=== PATIENT | female | born 1970 | race Hispanic/Latino ===

== ENCOUNTER 2019-04-01 03:49 | Inpatient (IN) | payer SELFPAY ==
[~2019-04-01] VITALS: Ht 149.9 cm; Wt 79.8 kg
[2019-04-01] MEDS: MORPHINE SULFATE INJ 4 MG/ML INJ 1ML IV PRN ×3 (03:50→15:05)
[2019-04-01] MEDS ORDERED: ONDANSETRON HCL INJ 2MG/ML 2ML 2 MG/ML VIAL IV STA (03:59)
[2019-04-01] MEDS ORDERED: MORPHINE SULFATE 2 MG/ML SYR 1ML IV STA (03:59)
[2019-04-01] MEDS ORDERED: MORPHINE SULFATE 2 MG/ML SYR 1ML ONE (04:00)
[2019-04-01] MEDS ORDERED: ONDANSETRON HCL INJ 2MG/ML 2ML 2 MG/ML VIAL ONE (04:01)
[2019-04-01 04:10] LABS: BASOPHILS # (AUTO) 0.1 (0.0-0.1); BASOPHILS % 0.8 % (0.0-1.0); EOSINOPHILS # (AUTO) 0.2 (0.0-0.4); EOSINOPHILS % 2.1 % (0.0-6.0); HEMATOCRIT 40.1 % (34.2-44.1); HEMOGLOBIN 14.1 g/dL (12.0-16.0); LYMPHOCYTES # (AUTO) 3.9 (1.0-3.2); LYMPHOCYTES % 38.4 % (18.0-39.1); MEAN CORPUSCULAR HEMOGLOBIN 30.8 pg (28-32); MEAN CORPUSCULAR HGB CONC 35.2 g/dL (31-35); MEAN CORPUSCULAR VOLUME 87.6 fL (81-99); MONOCYTES # (AUTO) 0.8 (0.2-0.8); MONOCYTES % 8.2 % (4.4-11.3); NEUTROPHILS # (AUTO) 5.1 (2.1-6.9); PLATELET COUNT 264 x10e3/uL (140-360); RED BLOOD COUNT 4.58 x10e6/uL (3.6-5.1); RED CELL DISTRIBUTION WIDTH 11.8 % (11.7-14.4)
[2019-04-01 04:33] LABS: ALANINE AMINOTRANSFERASE 60 IU/L (0-55); ALBUMIN 4.2 g/dL (3.5-5.0); ALBUMIN/GLOBULIN RATIO 1.3 (0.8-2.0); ALKALINE PHOSPHATASE 73 IU/L (40-150); ANION GAP 17.8 mmol/L (8-16); BLOOD UREA NITROGEN 17 mg/dL (7-26); BUN/CREATININE RATIO 20 (6-25); CALCIUM 10.1 mg/dL (8.4-10.2); CARBON DIOXIDE 24 mmol/L (22-29); CHLORIDE 101 mmol/L (98-107); CREATINE KINASE 96 IU/L (29-168); CREATININE, SERUM 0.84 mg/dL (0.57-1.11); EST GLOMERULAR FILTRATION RATE > 60 ML/MIN (60-); GLUCOSE 252 mg/dL (74-118); POTASSIUM 3.8 mmol/L (3.5-5.1); SODIUM 139 mmol/L (136-145)
[2019-04-01 04:34] LABS: AMYLASE 55 U/L (25-125); LIPASE 58 U/L (8-78)
[2019-04-01] MEDS ORDERED: SODIUM CHLORIDE 0.9% 50ML 50 ML ONE (04:40)
[2019-04-01] MEDS ORDERED: IOPAMIDOL 370 MG/ML 200 ML INFUS..BTL INJ ONE (04:40)
--- NOTE | 2019-04-01 05:11 | Diagnostic Imaging Report ---
EXAM: CT Abdomen and Pelvis WITH contrast INDICATION: Left flank and left lower quadrant pain. Nausea and vomiting. COMPARISON: None. TECHNIQUE: Abdomen and pelvis were scanned utilizing a multidetector helical scanner from the lung base to the pubic symphysis after administration of IV contrast. Coronal and sagittal reformations were obtained. Routine protocol was performed. Scan was performed when during portal venous phase. IV CONTRAST: 100 cc Isovue 300 ORAL CONTRAST: Water RADIATION DOSE: Total DLP: 584.08 mGy*cm Estimated effective dose: (DLP x 0.015 x size factor) mSv COMPLICATIONS: None FINDINGS: LINES and TUBES: None. LOWER THORAX: Unremarkable HEPATOBILIARY: Hepatomegaly. The liver is diffuse hypodense compared to the spleen, consistent with diffuse hepatic diffuse hepatic steatosis. No focal hepatic lesions. No biliary ductal dilation. GALLBLADDER: No radio-opaque stones or sludge. No wall thickening. SPLEEN: No splenomegaly. PANCREAS: No focal masses or ductal dilatation. ADRENALS: No adrenal nodules. KIDNEYS/URETERS: Kidneys enhance symmetrically. Mild left hydroureteronephrosis. Tiny, 3 mm low-attenuation lesion in the lower interpolar region suggestive of a tiny cyst. 5 mm low-attenuation lesion in the lateral lower pole of the right kidney also likely to represent a small cyst. 5 mm calculus within the proximal left ureter on axial image 45 and coronal images 61. GI TRACT: No abnormal distention, wall thickening, or evidence of bowel obstruction. Appendix is normal. PELVIC ORGANS/BLADDER: Unremarkable. LYMPH NODES: No lymphadenopathy. VESSELS: Unremarkable. PERITONEUM / RETROPERITONEUM: No free air or fluid. BONES: Unremarkable. SOFT TISSUES: Mild prominence and increased density in the umbilical region nonspecific. IMPRESSION: 1. 5 mm obstructing calculus in the proximal left ureter resulting in mild left hydroureteronephrosis. 2. Hepatomegaly and hepatic steatosis. Signed by: Dr. Regulo Romero M.D. on 04/01/2019 5:08 AM
[2019-04-01 05:20] LABS: BILIRUBIN,URINE NEGATIVE (NEGATIVE); CLARITY,URINE SL CLOUDY (CLEAR); COLOR,URINE YELLOW (YELLOW); KETONES,URINE NEGATIVE (NEGATIVE); LEUKOCYTE ESTERASE ,URINE NEGATIVE (NEGATIVE); NITRITE,URINE NEGATIVE (NEGATIVE); PROTEIN,URINE DIPSTICK TRACE (NEGATIVE); URINE UROBILINOGEN 0.2 mg/dL (0.2 - 1)
[2019-04-01 05:23] LABS: AMPHETAMINES SCREEN,URINE NEGATIVE (NEGATIVE); PHENCYCLIDINE SCREEN,URINE NEGATIVE (NEGATIVE)
[2019-04-01 05:24] LABS: BENZODIAZEPINES SCREEN,URINE NEGATIVE (NEGATIVE)
[2019-04-01 05:25] LABS: BACTERIA,URINE MODERATE /HPF; EPITHELIAL CELLS,URINE MODERATE /LPF; RBC,URINE >50 /HPF (0-5)
[2019-04-01] MEDS ORDERED: MORPHINE SULFATE 2 MG/ML SYR 1ML IV PRN (06:30)
--- OUTSIDE RECORDS SUMMARY | 2019-04-01 06:43 | XMS REPORT | Encounter Summary ---
Author Organization Unknown Address [address] [place] [address] Phone [phone] Reason for Visit Medical Complaint Instructions 1. Influenza-like symptoms oseltamivir 75 mg capsule Bromfed DM 2 mg-30 mg-10 mg/5 mL syrup rapid flu (A+B) 2. History of hypertension high blood pressure: care instructions 3. History of diabetes mellitus type 2 diabetes: care instructions 4. Former light tobacco smoker Discussion Note Pt is aaox3 and in NAD; verbalizes understanding of all instructions and has no further questions at this time Plan of Care Patient Instructions Take fluticasone as needed twice a day until symptoms subside; increase fluids and get plenty of rest. Take a warm, steamy shower and blow your nose in the shower. After drying yourself off, place the tip of the nasal spray inside each nostril, and spray once into each nostril towards the orifice inside your nose. Then, immediately lift your head up for 10 seconds to drain the medication into your sinuses. Repeat again at night. Take medications as prescribed and discussed; follow up with your PCP within 2-3 days or sooner should symptoms worsen. Follow up with PCP regarding the need for weight loss, dietary management, diabetes and blood pressure management, and exercise. Reminders Provider Appointments None recorded. Lab Rapid Flu (A+B) 08/14/2017 [facility] Referral None recorded. Procedures None recorded. Surgeries None recorded. Imaging None recorded. Medications Name Start Date Bromfed DM 2 mg-30 mg-10 mg/5 mL syrup Take 10 mL every 4 hours by oral route as needed. Lexapro lisinopril 10 mg-hydrochlorothiazide 12.5 mg tablet Take 1 tablet every day by oral route. oseltamivir 75 mg capsule Take 1 capsule twice a day by oral route as directed for 5 days. Victoza 2-Teto 0.6 mg/0.1 mL (18 mg/3 mL) subcutaneous pen injector Inject by subcutaneous route. Medications Administered None recorded. Vitals Height Weight BMI Blood Pressure 4 ft 11 in 165 lbs 33.3 kg/m2 122/80 mm[Hg] Lab Results Date Name Specimen Result Interpretation Description Value Range Status Address Rapid Flu (A+B) Influenza a negative [facility]: [facility] Influenza B negative [facility]: [facility] Allergies Code Code System Name Reaction Severity Status Onset NKDA Problems Name Status Onset Date Source Allergic Rhinitis Active Encounter Asthma Active Encounter Procedures None recorded. Vaccine List Vaccine Type Tdap 06/20/2008 Social History Smoking Status Former Smoker Past Encounters 08/14/2017 Influenza-like Symptoms; History of Hypertension; History of Diabetes Mellitus; Former Light Tobacco Smoker Don Ventura, [facility]: [address] [place] [address], Ph. History of Present Illness [id number] Reported By: Patient HPI: Quality: cannot identify. Duration: constant, 1 days. Severity: subjective temperature, same. Onset/Timing: first recorded last night. Context: no tick/insect bites, no recent travel, no new medications, ill contacts. Associated Symptoms: no rash, no lethargy, fever/chills, headache, muscle aches, cold symptoms, tired (fatigue), cough, nasal passage blockage (stuffiness). Modifying Factors nothing gives relief Review of Systems:ROS as noted in the HPI Review of Systems Basic Reported By: Patient Physical Exam Adult Basic, Adult Female Complete Reported By: Patient Constitutional: General Appearance: healthy-appearing, well-nourished, well-developed. Level of Distress: acutely ill. Ambulation: ambulating normally Psychiatric: Mental Status: active and alert. Orientation: to time, to place, to person Hvr-Suzv-Njcra-Throat: Ears: no lesions on external ear, no outer ear tenderness, EACs clear, TMs clear. Hearing: no hearing loss. Nose: no lesions on external nose, nares patent, no septal deviation, nasal passages clear, no sinus tenderness, nasal discharge--rhinorrhea, post nasal drip. Lips, Teeth, and Gums: no mouth or lip ulcers, no bleeding gums, normal dentition. Oropharynx: moist mucous membranes, no erythema, no exudates, tonsils not enlarged Neck: Lymph Nodes: no cervical LAD, no supraclavicular LAD Lungs: Respiratory effort: no dyspnea, no tachypnea, no use of accessory muscles, no intercostal retractions. Auscultation: breath sounds normal Cardiovascular: Heart Auscultation: RRR, no murmurs Neurologic: Gait and Station: normal gait, normal station
--- OUTSIDE RECORDS SUMMARY | 2019-04-01 06:43 | XMS REPORT | Clinical Summary ---
Author Author [facility] Organization [facility] Address Unknown Phone Unavailable Care Team Providers Care Trapeze Performer Name Role Phone Henna Cardoso MD PCP Allergies No Known Allergies Medications End Date Status Medication Sig Dispensed Refills Start Date Active blood-glucose meter kit Test daily 1 each 0 before all 6 meals/snacks and once before bedtime. Active lancets misc Test daily 200 each 1 before all 6 meals/snacks and once before bedtime. Active blood sugar diagnostic Test daily 100 strip 3 strips strip test strips before all 6 meals/snacks and once before bedtime. Active estradiol (ESTRADIOL 0 TRANSDERMAL PATCH) 0.1 mg/24 hr Active progesterone (PROMETRIUM) 0 100 MG capsule Active dulaglutide (TRULICITY) Inject 1.5 mg 4 Syringe 2 1.5 mg/0.5 mL pen under the 8 injector skin every 7 days. 04/26/2018 lisinopril-hydrochlorothi Take 1 tablet 90 tablet 0 azide by mouth 8 (PRINZIDE,ZESTORETIC) daily for 90 10-12.5 mg per tablet days. 06/01/2018 escitalopram (LEXAPRO) 20 Take 1 tablet 90 tablet 0 MG tablet (20 mg total) 8 by mouth daily for 90 days. Active Problems Not on file Immunizations Name Dates Previously Given Next Due FLUZONE QUAD INTRADERMAL 05/16/2016 PF Influenza Trivalent 11/11/2017 MMR 01/15/2018, 11/17/2017 PPD Test 11/11/2017 Pneumococcal 05/16/2016 Polysaccharide Tdap 11/11/2017 Family History Medical History Relation Name Comments Alcohol abuse Father [place] 2014 Cancer Father [place] Colon cancer Father [place] Colon Cancer Hypertension Father [place] Diabetes Maternal Deb 2016 Grandmother Baljinder Depression Mother Patsy Valencia Diabetes Mother Patsy Valencia Stroke Mother Patsy Valencia 2 strokes since 05/2015 Relation Name Status Comments Father Main [place] Maternal Grandmother Deb Gale Mother Patsy Valencia Social History Date Tobacco Use Types Packs/Day Years Used Quit: 08/24/2000 Former Smoker Cigarettes 0.5 5 Smokeless Tobacco: Never Used Alcohol Use Drinks/Week oz/Week Comments Yes 2 Glasses of socially, once or twice per month wine 4 Cans of beer Sex Assigned at Date Recorded Not on file Industry Job Start Date Occupation Not on file Not on file Not on file Travel End Travel History Travel Start No recent travel history available. Last Filed Vital Signs Not on file Plan of Treatment Health Maintenance Due Date Last Done Comments INFLUENZA VACCINE 03/24/2019 11/11/2017, 11/11/2017, 05/16/2016 Results Not on fileafter 03/31/2018 Insurance Type Payer Benefit Subscriber ID Effective Phone Address Plan / Dates Group PPO BCBS BCBS xxxxxxxxxxxx 2017-P CHOICE resent PPO/[employer] PPO Advance Directives Patient has advance care planning documents on file. For more information, matt e contact: Jorge Muller [address] [place] [address]
--- OUTSIDE RECORDS SUMMARY | 2019-04-01 06:43 | XMS REPORT ---
Author [facility] Address Unknown Phone Unavailable Care Team Providers Care Clinical Manager Home Care Name Role Phone Ruben MCPHERSON Unavailable Unavailable Problems This patient has no known problems. Allergies, Adverse Reactions, Alerts This patient has no known allergies or adverse reactions. Medications This patient has no known medications. Results Test Description Test Time Test Comments Text Results Atomic Results Result Comments CT ABDOMEN/PELVIS W 2019-04-01 05:01:00 [place] [address] Patient Name: CATHY STANFORD MR #: [id number] : 1970 Age/Sex: 48/F Req #: [id number] Adm Physician: Ordered by: NINA MCPHERSON MD Report #: [id number] Location: ER Room/Bed: Procedure: [id number] CT/CT ABDOMEN/PELVIS W Exam Date: 04/01/19 Exam Time: 0445 REPORT STATUS: Signed EXAM: CT Abdomen and Pelvis WITH contrast INDICA TION: Left flank and left lower quadrant pain. Nausea and vomiting. COMPARISON: None. TECHNIQUE: Abdomen and pelvis were scanned utilizing a multidetector helical scanner from the lung base to the pubic symphysis after administration of IV contrast. Coronal and sagittal reformations were obtained. Routine protocol was performed. Scan was performed when during portal venous phase. IV CONTRAST: 100 cc Isovue 300 ORAL CONTRAST: Water RADIATION DOSE: Total DLP: 584.08 mGy*cm Estimated effective dose: (DLP x 0.015 x size factor) mSv COMPLICATIONS: None FINDINGS: LINES and TUBES: None. LOWER THORAX: Unremarkable HEPATOBILIARY: Hepatomegaly. The liver is diffuse hypodense compared to the spleen, consistent with diffuse hepatic diffuse hepatic steatosis. No focal hepatic lesions. No biliary ductal dilation. GALLBLADDER: No radio-opaque stones or sludge. No wall thickening. SPLEEN: No splenomegaly. PANCREAS: No focal masses or ductal dilatation. ADRENALS: No adrenal nodules. KIDNEYS/URETERS: Kidneys enhance symmetrically. Mild left hydroureteronephrosis. Tiny, 3 mm low-attenuation lesion in the lower interpolar region suggestive of a tiny cyst. 5 mm low- attenuation lesion in the lateral lower pole of the right kidney also likely to represent a small cyst. 5 mm calculus within the proximal left ureter on axial image 45 and coronal images 61. GI TRACT: No abnormal distention, wall thickening, or evidence of bowel obstruction. Appendix is normal. PELVIC ORGANS/BLADDER: Unremarkable. LYMPH NODES: No lymphadenopathy. VESSELS: Unremarkable. PERITONEUM / RETROPERITONEUM: No free air or fluid. BONES: Unremarkable. SOFT TISSUES: Mild prominence and increased density in the umbilical region nonspecific. IMPRESSION: 1. 5 mm obstructing calculus in the proximal left ureter resulting in mild left hydroureteronephrosis. 2. Hepatomegaly and hepatic steatosis. Signed by: Dr. Regulo Dominguez M.D. on 04/01/2019 5:08 AM Dictated By: JOANN DOMINGUEZ MD, MD Transcribed By: QUYEN on 04/01/19507 COPY TO: NINA MCPHERSON MD
--- OUTSIDE RECORDS SUMMARY | 2019-04-01 06:43 | XMS REPORT | Summary of Care ---
Author Author [facility] Organization [facility] Address Unknown Phone Unavailable Care Team Providers Care Freelance Director Name Role Phone Samantha Ewing DO PCP Encounter Details Care Team Description Date Type Department Samantha Ewing, [address] [place] [address] [address] [place] [address] 03/30/2019 Letter (Out) [facility]- [address], [address] [place] [address] Allergies No Known Allergiesdocumented as of this encounter (statuses as of 03/30/2019) Medications End Date Status Medication Sig Dispensed Refills Start Date Active Cholecalciferol, Vitamin Take 5,000 0 D3, (VITAMIN D3) 5,000 Units by 8 unit tablet mouth daily. Active liraglutide (SAXENDA) 3 inject 3 mg 5 Syringe 5 mg/0.5 mL (18 mg/3 mL) under the 8 PnIj skin daily. Active omega 2-jgz-fdl-fish oil 0 (FISH OIL) 1,600-500-800 mg/5 mL Liqd Active meloxicam (MOBIC) 7.5 mg Take 1-2 60 tablet 1 tabletIndications: tablets by 8 Polyarthralgia mouth daily. Active Blood-Glucose Meter Check sugar 1 Kit 0 (ONETOUCH VERIO IQ METER) once a day. 8 Kit Active lancets 31 gauge Misc Check sugar 100 Each 2 once a day. 8 Active blood sugar diagnostic Use as 100 Strip 2 (ONETOUCH VERIO) strip directed 8 Active MICRO THIN LANCETS 33 0 gauge Misc 8 Active ipratropium 17 Inhale 2 12.9 g 0 mcg/actuation Puffs 4 8 inhalerIndications: (four) times Cough, Bronchospasm daily as needed for Wheezing or Bronchospasm. Active albuterol 90 Inhale 2 8.5 g 2 mcg/actuation inhaler Puffs every 4 9 (four) hours as needed for Wheezing or Shortness of Breath. Active metformin ER 500 mg 24 hr 1 by mouth 120 tablet 2 tabletIndications: Type 2 daily for 1 9 diabetes mellitus without week then complication, without increase long-term current use of weekly by one insulin tab to max of 4 tabs daily after week #3. Active escitalopram oxalate 20 Take 1 tablet 90 tablet 2 mg tabletIndications: by mouth 9 Episode of recurrent daily. major depressive disorder, unspecified depression episode severity Active lisinopril-hydrochlorothi Take 1 tablet 90 tablet 2 azide 10-12.5 mg per by mouth 9 tabletIndications: daily. Essential hypertension 04/09/2019 Active doxycycline 100 mg Take 1 tablet 20 tablet 0 tabletIndications: Cough by mouth 2 9 (two) times daily for 10 days. documented as of this encounter (statuses as of 03/30/2019) Active Problems Problem Noted Date Flatulence, eructation, and gas pain 05/14/2018 Overview: Added automatically from request for surgery [id number] Colon cancer screening 05/14/2018 Overview: Added automatically from request for surgery [id number] Family history of colon cancer 05/14/2018 Overview: Added automatically from request for surgery [id number] Dyspepsia 05/13/2018 Overview: Added automatically from request for surgery [id number] Early satiety 05/13/2018 Overview: Added automatically from request for surgery [id number] Premature menopause on HRT 04/30/2018 Polyarthralgia 04/23/2018 Immunization counseling 04/23/2018 Positive ARELY (antinuclear antibody) 1:40 04/23/2018 ALT (SGPT) level raised 04/23/2018 Swelling of both hands 04/23/2018 Sicca, unspecified type 04/23/2018 Transaminitis 04/23/2018 Menopause 04/01/2018 Type 2 diabetes mellitus without complication, without long-term current 04/01/2018 use of insulin Episode of recurrent major depressive disorder, unspecified depression 04/01/2018 episode severity Essential hypertension 04/01/2018 Hypertriglyceridemia 04/01/2018 Obesity (BMI 30.0-34.9) 04/01/2018 documented as of this encounter (statuses as of 03/30/2019) Immunizations Name Administration Dates Next Due Influenza Virus Vaccine 05/24/2018, 10/22/2017 Influenza Virus Vaccine 05/16/2016 Quad ID [id number] YRS MMR 01/15/2018, 11/17/2017 PPD (TB) 11/11/2017 Pneumococcal 05/16/2016 Polysaccharide, PPSV23 (PNEUMOVAX) Tdap 11/11/2017 documented as of this encounter Social History Date Tobacco Use Types Packs/Day Years Used Never Smoker Smokeless Tobacco: Never Used Drinks/Week oz/Week Comments Alcohol Use social Yes Sex Assigned at Date Recorded Not on file Industry Job Start Date Occupation Not on file Not on file Not on file Travel End Travel History Travel Start No recent travel history available. documented as of this encounter Last Filed Vital Signs Not on filedocumented in this encounter Plan of Treatment Health Maintenance Due Date Last Done Comments HgA1C 1973 URINE MICROALBUMIN 1982 PAP SMEAR 1993 FOOT EXAM 04/01/2019 04/01/2018, 04/01/2018 LDL-C 04/01/2019 04/01/2018 CREATININE (SERUM) 04/23/2019 04/23/2018 INFLUENZA VACCINE 04/24/2019 05/24/2018, 11/11/2017, 10/22/2017, Additional history exists EYE EXAM 05/04/2019 05/04/2018 MAMMOGRAM 05/07/2019 05/07/2018 COLONOSCOPY 06/10/2023 06/10/2018 DTaP,Tdap,and Td Vaccines 11/12/2027 11/11/2017 (2 - Td) PNEUMOCOCCAL 0-64 YEARS Completed 05/16/2016 COMBINED SERIES documented as of this encounter Results Not on filedocumented in this encounter
--- OUTSIDE RECORDS SUMMARY | 2019-04-01 06:43 | XMS REPORT | Continuity of Care Document ---
Author Author [facility] Address Unknown Phone Unavailable Care Team Providers Care Mathematics Technician Name Role Phone mygall Information [employer] Unavailable Unavailable Problems Problem Status Onset Date Classification Date Reported Comments Source Influenza-like symptoms 08/14/2017 Diagnosis 08/15/2017 [facility] History of hypertension 08/14/2017 Diagnosis 08/15/2017 [facility] History of diabetes mellitus 08/14/2017 Diagnosis 08/15/2017 [facility] Former light tobacco smoker 08/14/2017 Diagnosis 08/15/2017 [facility] Allergic Rhinitis Problem 08/15/2017 [facility] Asthma Problem 08/15/2017 [facility] Medications Medication Details Route Status Patient Instructions Ordering Provider Order Date Source Brompheniramine Maleate 0.4 MG/ML / Dextromethorphan Hydrobromide 2 MG/ML / Pseudoephedrine Hydrochloride 6 MG/ML Oral Solution [Bromfed DM] Bromfed DM 2 mg-30 mg-10 mg/5 mL syrup Take 10 mL every 4 hours by oral route as needed. Active [facility] Lexapro Lexapro Active [facility] Hydrochlorothiazide 12.5 MG / Lisinopril 10 MG Oral Tablet lisinopril 10 mg-hydrochlorothiazide 12.5 mg tablet Take 1 tablet every day by oral route. Active [facility] Oseltamivir 75 MG Oral Capsule oseltamivir 75 mg capsule Take 1 capsule twice a day by oral route as directed for 5 days. Active [facility] 3 ML liraglutide 6 MG/ML Pen Injector [Victoza] Victoza 2-Teto 0.6 mg/0.1 mL (18 mg/3 mL) subcutaneous pen injector Inject by subcutaneous route. Active [facility] Allergies, Adverse Reactions, Alerts No Known Medication Allergies Immunizations Immunization Date Given Site Status Last Updated Comments Source Tdap 06/20/2008 completed [facility] Results Order Name Results Value Reference Range Date Interpretation Comments Source Influenza A negative 08/14/2017 [facility] Influenza B negative 08/14/2017 [facility] Pathology Reports No Data Provided for This Section Diagnostic Reports No Data Provided for This Section Consultation Notes No Data Provided for This Section Discharge Summaries No Data Provided for This Section History and Physicals No Data Provided for This Section Vital Signs Vital Sign Value Date Comments Source Diastolic (mm Hg) 80 08/14/2017 [facility] Height 59 08/14/2017 [facility] Systolic (mm Hg) 122 08/14/2017 [facility] Weight 165 08/14/2017 [facility] Encounters Location Location Details Encounter Type Encounter Number Reason For Visit Attending Provider ADM Date DC Date Status Source [place] - [facility] - [id number] Don Ventura, MA[employer] [employer] [address] [facility] [place] [address], Ph. [id number] Don Ventura 08/14/2017 [facility] Procedures No Data Provided for This Section Assessment and Plan No Data Provided for This Section Plan of Care No Data Provided for This Section Social History Social History Date Source Smoking Status Former Smoker 12/26/2012 [facility] Family History No Data Provided for This Section Advance Directives No Data Provided for This Section Functional Status No Data Provided for This Section
--- OUTSIDE RECORDS SUMMARY | 2019-04-01 06:44 | XMS REPORT | Summary of Care ---
Author Author [facility] - Health Organization [facility] - Health Address Unknown Phone Unavailable Care Team Providers Care Library Science Instructor Name Role Phone Samantha Ewing DO PCP Reason for Visit * Reason Comments Medication Assistance Cough Encounter Details Care Team Description Date Type Department Samantha Ewing DO [address] [place] [address] [address] [place] [address] Type 2 diabetes mellitus without complication, without long-term current use of insulin (Primary Dx); Essential hypertension; Cough; Whole body pain; Episode of recurrent major depressive disorder, unspecified depression episode severity 03/30/[address] [facility]- [address] [place] [address] Allergies No Known Allergiesdocumented as [...] the 8 PnIj skin daily. Active omega 7-ydh-bas-fish oil 0 (FISH OIL) 1,600-500-800 mg/5 mL [...] 9 (two) times daily for 10 days. 03/30/2019 Discontinued predniSONE 10 mg 2 tabs (20 15 tablet 0 tabletIndications: Cough, mg) daily x 5 8 Bronchospasm days then 1 tabs (10 mg) daily x 5 days 03/30/2019 Discontinued lisinopril-hydrochlorothi Take 1 tablet 90 tablet 2 azide 10-12.5 mg per by mouth 9 tabletIndications: daily. Essential hypertension 03/30/2019 Discontinued escitalopram oxalate 20 Take 1 tablet 90 tablet 2 mg tabletIndications: by mouth 9 Episode of recurrent daily. major depressive disorder, unspecified depression episode severity documented as of this encounter (statuses as of 03/30/2019) Active Problems Problem Noted Date Flatulence, eructation, and gas pain 05/14/2018 Overview: Added automatically from request for surgery [id number] Colon cancer screening 05/14/2018 Overview: Added automatically from request for surgery [id number] Family history of colon cancer 05/14/2018 Overview: Added automatically from request for surgery [id number] Dyspepsia 05/13/2018 Overview: Added automatically from request for surgery [id number] Early satiety 05/13/2018 Overview: Added automatically from request for surgery [id number] Premature menopause on HRT 04/30/2018 Polyarthralgia 04/23/2018 [...] of this encounter Last Filed Vital Signs Reading Time Taken Comments Vital Sign 116/69 03/30/2019 8:35 AM CDT Blood Pressure 104 03/30/2019 8:35 AM CDT Pulse 37.3 C (99.2 F) 03/30/2019 8:35 AM CDT Temperature 18 03/30/2019 8:35 AM CDT Respiratory Rate 96% 03/30/2019 8:35 AM CDT Oxygen Saturation - - Inhaled Oxygen Concentration 76.9 kg (169 lb 9.6 oz) 03/30/2019 8:35 AM CDT Weight 149.9 cm (4' 11") 03/30/2019 8:35 AM CDT Height 34.26 03/30/2019 8:35 AM CDT Body Mass Index documented in this encounter Patient Instructions * Patient Instructions* Samantha Ewing, - 03/30/2019 8:30 AM CDT Whole 30 Consider decreasing Gluten Elimination Diet Lizette Ho MD [facility] [address] [place] [address] documented in this encounter Progress Notes * Mena Gómez - 03/30/2019 8:30 AM CDT Recent Labs 03/30/19 0938 [id number] 9.1* * Samantha Ewing, - 03/30/2019 8:30 AM CDT Subjective: Betty Billy is a 48 year old female with a chief complaint of medication r efills. Patient states life is well. No surgeries or hospitalizations since [facility]. Pt states she visited with Dr. Paz Rheumatology and feels chronic whole b ferdinand pain is likely Fibromyalgia. Patient states she has hx of being told she may have lupus. Patient states Dr. Paz prescribed the patient Lyrica but she did not give the medication enough time for the medication to work. Patient states whole body pain began 2 years ago and started as hip pain after g etting up. Patient states she has joint pain daily that caused her to take a par t time job due to being in pain all day at work. Patient states she does not sle ep and is fatigued daily. Patient states she was Vegan for 30 days and felt better but the pain did not go away. Patient states diet and exercise allowed her to feel better and sleep bet ter. 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 Patient states she is not taking Saxenda due to not having insurance. Patient st ates she has hx of taking Metformin but discontinued due to GI side effects. Pat bijan states she is open to trying Metformin again. A!C : 6.4 completed on 03/18/18 at [facility]. Patient states she is compliant with Lexapro 20 mg and Lisinopril-HCTZ 10-12.5 m g. Patient states her depression has exacerbated. No rashes. No recent traveling. Patient states she has not been tested for Lyme disease. Patient does not recall being bitten. Patient complains of cough and SOB present for 3 days. No fever. Patient states her grandson was recently sick and just started daycare. Hx of asthma as a kid. Last Tdap 11/11/17. Review of Systems Constitutional: Positive for activity change. Negative for appetite change, fati vero, weight gain and weight loss. HENT: Negative for congestion and rhinorrhea. Eyes: Negative. Respiratory: Negative for cough and shortness of breath. Cardiovascular: Negative for chest pain and palpitations. Gastrointestinal: Negative for abdominal pain, constipation and diarrhea. Genitourinary: Negative for dysuria. Musculoskeletal: Positive for arthralgias. Negative for back pain and myalgias. Skin: Negative for rash. Neurological: Negative for dizziness and weakness. Psychiatric/Behavioral: Negative for dysphoric mood. The patient is not nervous/ anxious. Endocrine: Negative for weight gain and weight loss. Patient Active Problem List Diagnosis Menopause Type 2 diabetes mellitus without complication, without long-term current use of insulin Episode of recurrent major depressive disorder, unspecified depression episo de severity Essential hypertension Hypertriglyceridemia Obesity (BMI 30.0-34.9) Polyarthralgia Immunization counseling Positive ARELY (antinuclear antibody) 1:40 ALT (SGPT) level raised Swelling of both hands Sicca, unspecified type Transaminitis Premature menopause on HRT Dyspepsia Early satiety Flatulence, eructation, and gas pain Colon cancer screening Family history of colon cancer Current Outpatient Medications on File Prior to Visit Medication Sig Dispense Refill albuterol 90 mcg/actuation inhaler Inhale 2 Puffs every 4 (four) hours as ne eded for Wheezing or Shortness of Breath. 8.5 g 2 ipratropium 17 mcg/actuation inhaler Inhale 2 Puffs 4 (four) times daily as needed for Wheezing or Bronchospasm. 12.9 g 0 MICRO THIN LANCETS 33 gauge Misc blood sugar diagnostic (ONETOUCH VERIO) strip Use as directed 100 Strip 2 Blood-Glucose Meter (ONETOUCH VERIO IQ METER) Kit Check sugar once a day. 1 Kit 0 lancets 31 gauge Misc Check sugar once a day. 100 Each 2 meloxicam (MOBIC) 7.5 mg tablet Take 1-2 tablets by mouth daily. 60 tablet 1 omega 1-nzy-kra-fish oil (FISH OIL) 1,600-500-800 mg/5 mL Liqd Cholecalciferol, Vitamin D3, (VITAMIN D3) 5,000 unit tablet Take 5,000 Units by mouth daily. liraglutide (SAXENDA) 3 mg/0.5 mL (18 mg/3 mL) PnIj inject 3 mg under the sk in daily. 5 Syringe 5 No current facility-administered medications on file prior to visit. No Known Allergies Family History Problem Relation Age of Onset Diabetes Mother Hypothyroidism Mother Stroke Mother Colon Cancer Father Colon Cancer Sister Social History Socioeconomic History Marital status: Spouse name: Not on file Number of children: Not on file Years of education: Not on file Highest education level: Not on file Occupational History Not on file Social Needs Financial resource strain: Not on file Food insecurity: Worry: Not on file Inability: Not on file Transportation needs: Medical: Not on file Non-medical: Not on file Tobacco Use Smoking status: Never Smoker Smokeless tobacco: Never Used Substance and Sexual Activity Alcohol use: Yes Comment: social Drug use: No Sexual activity: Yes Partners: Male control/protection: Post-menopausal Lifestyle Physical activity: Days per week: Not on file Minutes per session: Not on file Stress: Not on file Relationships Social connections: Talks on phone: Not on file Gets together: Not on file Attends jain service: Not on file Active member of club or organization: Not on file Attends meetings of clubs or organizations: Not on file Relationship status: Not on file Intimate partner violence: Fear of current or ex partner: Not on file Emotionally abused: Not on file Physically abused: Not on file Forced sexual activity: Not on file Other Topics Concern Not on file Social History Narrative , 3 children 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 She appears well-dev eloped and well-nourished. HENT: Head: Normocephalic. Right Ear: External ear normal. Left Ear: External ear normal. Nose: Nose normal. Mouth/Throat: Oropharynx is clear and moist. Eyes: Pupils are equal, round, and reactive to light. Conjunctivae and EOM are n ormal. Cardiovascular: Normal rate, regular rhythm, normal heart sounds and intact dist al pulses. No murmur heard. Pulmonary/Chest: Effort normal. She has rhonchi in the right upper field, the ri ght middle field and the right lower field. Abdominal: Soft. Bowel sounds are normal. Musculoskeletal: Normal range of motion. Lymphadenopathy: She has no cervical adenopathy. Neurological: She is alert and oriented to person, place, and time. She has norm al reflexes. Skin: Skin is warm and dry. Psychiatric: She has a normal mood and affect. Her behavior is normal. Judgment and thought content normal. Vitals reviewed. Sensory exam of the foot is normal. Monofilament exam with sensation Right: 5/5, Left: 5/5. Lesions absent Ulcers Absent Peripheral pulses present 2+. Adult health maintenance and preventive care measures reviewed. All new meds reviewed with disclosure re: use, dosing, common side effects. Pt expressed understanding. Assessment and Plan: Type 2 diabetes mellitus without complication, without long-term current use of insulin (primary encounter diagnosis) Comment: POCT HBA1C (%) Date Value 03/30/2019 9.1 (A) Plan: CONSULT/REFERRAL SOCIAL WORK-AMBULATORY, POCT HEMOGLOBIN A1C TEST, START metformin ER 500 mg 24 hr tablet Global teaching related to individual health problem(s) to include (but no t limited to) counseling on diet, food choices, exercise, hydration, monitoring parameters for blood pressure and blood sugar, keeping a log, med compliance, we ight loss, stress management and the importance of sleep and foot care. Essential hypertension Comment: Controlled. Plan: CONSULT/REFERRAL SOCIAL WORK-AMBULATORY, CONTINUE lisinopril-hydrochlorothiazide 10-12.5 mg per tablet Short and jail risks of uncontrolled HTN reviewed including morbidity and mortality. Cough Plan: START doxycycline 100 mg tablet Hydration and symptomatic care. Pt declines chest xray at this time. Whole body pain Plan: Contact social science professor due to patient no longer having insurance. Recommend ID assessment as well as 2nd opinion from [facility]. Discussed at length. Episode of recurrent major depressive disorder, unspecified depression episode s everity Comment: Supportive counseling and advice given. Plan: CONTINUE escitalopram oxalate 20 mg tablet AVS reviewed and given to patient at conclusion of visit. Samantha Ewing DO Scribe's Attestation Neha Lamar am scribing for, and in the presence of, Samantha Ewing DO who performed the services described here-in. Neha Epstein, March 30, 2019, 8:57 AM Physician's Attestation I, Samantha Ewing DO, personally performed the services described in this d ocumentation , as scribed by, Neha Epstein in my presence and it is both ac curate and complete. Samantha Ewing DO March 30, 2019, 5:54 PM * Mena Gómez - 03/30/2019 8:30 AM CDT Betty Billy is a 48 year old female to be seen in clinic today for a medic ation refills and cough Level of pain: 0/10 Location of pain: n/a Pt accompanied to visit by: self Fall risk assessed, allergies reviewed, pharmacy confirmed, medication reconcile d and to be reviewed by provider. Mena Gómez 03/30/2019 8:35 AM documented in this encounter Plan of Treatment Health [...] COMBINED SERIES documented as of this encounter Procedures Comments Procedure Name Priority Date/Time Associated Diagnosis POCT HEMOGLOBIN A1C TEST Routine 03/30/2019 Type 2 diabetes mellitus 9:38 AM CDT without complication, without long-term current use of insulin documented in this encounter Results * POCT HEMOGLOBIN A1C TEST (03/30/2019 9:38 AM CDT) POCT HBA1C 9.1 (A) 4 - 6 % Specimen Blood - CAPILLARY documented in this encounter Visit Diagnoses Diagnosis Type 2 diabetes mellitus without complication, without long-term current use of insulin - Primary Essential hypertension Unspecified essential hypertension Cough Whole body pain Generalized pain Episode of recurrent major depressive disorder, unspecified depression episode severity documented in this encounter
--- OUTSIDE RECORDS SUMMARY | 2019-04-01 06:44 | XMS REPORT | Summary of Care ---
Author Author [facility] - Health Organization [facility] - Health Address Unknown Phone Unavailable Care Team Providers Care Marble Helper Name Role Phone Samantha Ewing DO PCP Reason for Visit * Reason Comments Medication Assistance Cough Encounter Details Care Team Description Date Type Department Samantha Ewing DO [address] [place] [address] [address] [place] [address] Type 2 diabetes mellitus without complication, without long-term current use of insulin (Primary Dx); Essential hypertension; Cough; Whole body pain; Episode of recurrent major depressive disorder, unspecified depression episode severity 03/30/[address] [facility]- [address], [address] [place] [address] Allergies No Known Allergiesdocumented as [...] the 8 PnIj skin daily. Active omega 7-mgv-mpg-fish oil 0 (FISH OIL) 1,600-500-800 mg/5 mL [...] Overview: Added automatically from request for surgery [id number] Colon cancer screening 05/14/2018 Overview: Added automatically from request for surgery [id number] Family history of colon cancer 05/14/2018 Overview: Added automatically from request for surgery [id number] Dyspepsia 05/13/2018 Overview: Added automatically from request for surgery [id number] Early satiety 05/13/2018 Overview: Added automatically from request for surgery [id number] Premature menopause on HRT 04/30/2018 Polyarthralgia 04/23/2018 [...] decreasing Gluten Elimination Diet Lizette Ho MD [facility] [address] [place] [address] documented in this encounter Progress Notes * Mena Gómez - 03/30/2019 8:30 AM CDT Recent Labs 03/30/19 0938 [id number] 9.1* * Samantha Ewing, - 03/30/2019 8:30 [...] ter. 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 Patient states she is not taking Saxenda due to not having insurance. Patient st ates she has hx of taking Metformin but discontinued due to GI side effects. Pat bijan states she is open to trying Metformin again. A!C : 6.4 completed on 03/18/18 at [facility]. Patient states she is compliant with Lexapro [...] by mouth daily. 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 Cough Plan: START doxycycline 100 mg tablet Hydration and symptomatic care. Pt declines chest xray at this time. Whole body pain Plan: Contact social work assistant due to patient no longer having insurance. [...]
--- NOTE | 2019-04-01 07:00 | NUR ---
RECEIVED REPORT FROM OFF GOING NURSE. PATIENT IN ROOM IN BED. AWAKE AND ALERT. NO S/S OF ACUTE DISTRESS. RESP EVEN AND NON LABORED. REPORTS PAIN IS BETTER THEN WHEN ARRIVED, 10/31. PENDING ROOM ASSIGNMENT FOR ADMISSION. BED DOWN CALL LIGHT IN REACH. WILL CONTINUE TO MONITOR.
[2019-04-01] MEDS ORDERED: LEXAPRO20 MG PO (07:20)
[2019-04-01] MEDS ORDERED: LISINOPRIL10 MG PO (07:20)
[2019-04-01] MEDS ORDERED: DOXYCYCLINE HY100 MG PO (07:20)
[2019-04-01] MEDS ORDERED: METFORMIN HCL500 M1 PO (07:20)
[2019-04-01] MEDS ORDERED: HYDROCHLOROTH12.5 M1 PO (07:20)
[2019-04-01] MEDS: SODIUM CHLORIDE 0.9% 1000ML 1,000 ML IV SCH ×2 (08:42→16:50)
[2019-04-01] MEDS: CEFTRIAXONE SOD 1 GM/NS 50 ML 50 ML IV SCH (08:42)
--- NOTE | 2019-04-01 11:25 | NUR ---
Patient admitted to unit from ER. Patient arrived via stretcher. patient is AAOx3. Patient c/o abdominal pain that started last night. pain in lower left abdomen. No pain in back. Lung harmon clear to auscultation. Bowel sounds present x4. no edema noted. IV fluids infusing to a left AC. No s/s of distress noted
[2019-04-01 11:41] VITALS: BP 114/62
[2019-04-01 12:19] VITALS: BP 114/62
[2019-04-01] MEDS: ONDANSETRON HCL INJ 2MG/ML 2ML 2 MG/ML VIAL IV PRN (15:09)
[2019-04-01 15:27] VITALS: BP 138/73
[2019-04-01] MEDS ORDERED: DEXTROSE 50% SYRINGE 50 ML IV PRN (16:00)
[2019-04-01] MEDS: INSULIN LISPRO 100 UNIT/1 ML 3ML VIAL SQ SCH ×2 (16:30→21:00)
[2019-04-01] MEDS ORDERED: TYLENOL WITH C1 EACH PO (16:42)
[2019-04-01] MEDS ORDERED: DITROPAN XL10 MG PO (16:42)
[2019-04-01] MEDS ORDERED: CEFTIN PO (16:42)
[2019-04-01] MEDS ORDERED: HYDROCODONE/APAP 5MG-325MG TAB PO PRN (16:45)
[2019-04-01] MEDS ORDERED: KETOROLAC TROMETHAMINE 30 MG/ML VIAL IV PRN (16:45)
[2019-04-01] MEDS: KETOROLAC TROMETHAMINE 30 MG/ML VIAL IV PRN ×2 (16:50→23:43)
[2019-04-01] MEDS: OXYBUTYNIN CHLORIDE XL 5 MG TAB PO SCH (17:41)
--- NOTE | 2019-04-01 18:05 | Diagnostic Imaging Report ---
Exam: Abdominal film Clinical History: Ureterolithiasis Comparison: CT abdomen and pelvis 04/01/2019 DISCUSSION: Frontal view of the abdomen shows a nonobstructive bowel gas pattern with mild amount of retained stool.There are no dilated, air-filled loops of bowel. The previously visualized nonobstructing calculus in the proximal left ureter on CT dated 04/01/2019 is not visualized on KUB. No acute bone abnormality. IMPRESSION: 1. Nonobstructive bowel gas pattern. 2.The previously visualized nonobstructing calculus in the proximal left ureter on CT dated 04/01/2019 is not visualized on KUB. The staff physician below has personally reviewed this exam on the date of dictation. Signed by: Dr. Manfred Ku M.D. on 04/01/2019 6:02 PM
[2019-04-01 20:00] VITALS: BP 95/54
--- NOTE | 2019-04-01 23:44 | NUR ---
PATIENT IN TEARS AND CRYING, SHE C/O SEVERE PAIN TO THE LOWER ABDOMEN. MEDICATED WITH TORADOL ORDERED, BACK RUBBED, PROVIDED AND CALL LIGHT WITHIN EASY REACH.
[2019-04-02] VITALS (7 sets, daily range): BP systolic 100–178; BP diastolic 55–83
[2019-04-02] MEDS: MORPHINE SULFATE INJ 4 MG/ML INJ 1ML IV PRN (00:33)
[2019-04-02] MEDS: ONDANSETRON HCL INJ 2MG/ML 2ML 2 MG/ML VIAL IV PRN ×2 (00:33→09:13)
--- NOTE | 2019-04-02 00:35 | NUR ---
PATIENT CONTINUE TO CRY AND STATES "THE TORADOL DID NOT HELP MY PAIN". ASSISTED WITH ADLS, MEDICATED WITH MORPHINE AND ZOFRAN ORDERED. CALL LIGHT WITHIN EASY REACH, WILL REASSESS PER PROTOCOL.
--- NOTE | 2019-04-02 02:58 | NUR ---
NO RESPIRATORY DISTRESS OBSERVED, PATIENT BEEN TO THE RESTROOM AND SHE'S NOW BACK IN BED. SHE C/O PAIN TO THE LOWER ABDOMEN WITH PAIN SCORE #10, MEDICATED WITH NORCO 1TAB ORDERED. CALL LIGHT WITHIN EASY REACH, SHE'S INSTRUCTED TO CALL FOR ASSISTANCE UPON GETTING OUT OF THE BED DUE TO SIDE EFFECT FROM THE MEDICATION.
[2019-04-02] MEDS ORDERED: LEVAQUIN500 MG PO (04:05)
[2019-04-02] MEDS ORDERED: ACETAMINOPHEN 325 MG TAB PO PRN (04:15)
[2019-04-02] MEDS ORDERED: HYDRALAZINE HCL 20 MG/ML VIAL IV PRN (04:15)
--- NOTE | 2019-04-02 04:41 | NUR ---
DR FLORENCE'S BOAT OUTBOARD ENGINE MECHANIC IS ON THE UNIT, SHE WAS MADE AWARE THAT THE PATIENT WAS CRYING DUE TO SEVERE LOWER ABDOMINAL PAIN AND THAT SHE WAS MEDICATED ORDERED. URINE HAS BEEN STRAINED, NO STONES NOTED.
[2019-04-02] MEDS: HYDROMORPHONE 1MG/1ML INJ IV PRN ×3 (05:12→23:52)
--- NOTE | 2019-04-02 05:15 | NUR ---
PATIENT VOMITED SMALL AMOUNT OF EMESIS AND SHE C/O LOWER ABDOMINAL PAIN. MEDICATED WITH ZOFRAN AND DILAUDID ORDERED, CALL LIGHT WITHIN EASY REACH, WILL REASSESS.
[2019-04-02] MEDS: SODIUM CHLORIDE 0.9% 1000ML 1,000 ML IV SCH ×4 (06:24→18:01)
[2019-04-02 06:27] LABS: BASOPHILS % 0.4 % (0.0-1.0); EOSINOPHILS % 0.2 % (0.0-6.0); HEMATOCRIT 37.3 % (34.2-44.1); HEMOGLOBIN 12.7 g/dL (12.0-16.0); LYMPHOCYTES # (AUTO) 1.2 (1.0-3.2); LYMPHOCYTES % 11.4 % (18.0-39.1); MEAN CORPUSCULAR HEMOGLOBIN 30.7 pg (28-32); MEAN CORPUSCULAR VOLUME 90.1 fL (81-99); MONOCYTES # (AUTO) 0.5 (0.2-0.8); MONOCYTES % 4.1 % (4.4-11.3); NEUTROPHILS % 82.6 % (38.7-80.0); PLATELET COUNT 241 x10e3/uL (140-360); RED BLOOD COUNT 4.14 x10e6/uL (3.6-5.1); RED CELL DISTRIBUTION WIDTH 11.9 % (11.7-14.4)
[2019-04-02] MEDS: KETOROLAC TROMETHAMINE 30 MG/ML VIAL IV PRN ×2 (06:44→17:16)
[2019-04-02 06:49] LABS: CALCIUM 8.8 mg/dL (8.4-10.2); CREATININE, SERUM 1.09 mg/dL (0.57-1.11)
[2019-04-02 06:59] LABS: ANION GAP 13.9 mmol/L (8-16)
[2019-04-02 07:06] LABS: POTASSIUM 4.9 mmol/L (3.5-5.1)
--- NOTE | 2019-04-02 07:13 | NUR ---
Received patient lying in bed with eyes open. Respiration even and unlabored without SOB. Call light within reach.
[2019-04-02] MEDS: CEFTRIAXONE SOD 1 GM/NS 50 ML 50 ML IV SCH (08:16)
[2019-04-02] MEDS: OXYBUTYNIN CHLORIDE XL 5 MG TAB PO SCH (08:16)
[2019-04-02] MEDS: LISINOPRIL 10 MG TAB PO SCH (08:16)
[2019-04-02] MEDS: HYDROCHLOROTHIAZIDE 25 MG TAB PO SCH (08:17)
[2019-04-02] MEDS: ESCITALOPRAM OXALATE 10 MG TAB PO SCH (08:17)
[2019-04-02] MEDS: INSULIN LISPRO 100 UNIT/1 ML 3ML VIAL SQ SCH ×4 (08:35→21:37)
[2019-04-02] MEDS ORDERED: NON-FORMULARY MEDICATION (Escitalopram Oxalate (Lexapro) 20 MG) PO SCH (09:00)
[2019-04-02] MEDS ORDERED: HYDROCHLOROTHIAZIDE 1.5 MG PO SCH (09:00)
[2019-04-02] MEDS: HYDROCODONE/APAP 7.5MG-325MG 1 EA TAB PO PRN ×2 (12:57→18:52)
--- NOTE | 2019-04-02 14:50 | NUR ---
Nutrition Screen Note RD Recommendation for Physician: Continue diet as ordered Plan of Care: RD following, monitoring for tolerance and adequacy Nutrition reason for involvement: Nutrition Risk Trigger - MST Primary Diagnose(s):urolithiasis PMH:T2DM, HTN, Ht: 59in Wt:166lb BMI:33.5 kg/m2 IBW:95lb +/-10% RD Assessment: (04/02/2019) Chart reviewed. Labs and meds reviewed. Initial encounter with patient. Pt with C/O nausea and poor appetite currently. limited acceptance of therapeutic diet. Pt denies any difficulty chewing or swallowing. No wt changes. No known food allergies. Current Diet: 1800 ADA Malnutrition Evaluation (04/02/2019) The patient does not meet criteria for a specified degree of malnutrition at this time. Will re-evaluate at follow-up as appropriate. Diet Education Needs Assessment: Diet education not indicated. Nutrition Care Level: Low Signed: Hira Costello RD, LD, [facility]
[2019-04-02] MEDS ORDERED: TAMSULOSIN HCL 0.4 MG CAP PO SCH (21:00)
[2019-04-03] VITALS: BP 123/73
[2019-04-03 04:00] VITALS: BP 118/69
[2019-04-03] MEDS ORDERED: FLOMAX0.4 MG PO (04:33)
[2019-04-03] MEDS: HYDROCODONE/APAP 7.5MG-325MG 1 EA TAB PO PRN ×2 (04:39→15:41)
[2019-04-03 04:42] LABS: BASOPHILS # (AUTO) 0.1 (0.0-0.1); BASOPHILS % 0.8 % (0.0-1.0); EOSINOPHILS # (AUTO) 0.1 (0.0-0.4); EOSINOPHILS % 1.8 % (0.0-6.0); HEMOGLOBIN 10.6 g/dL (12.0-16.0); LYMPHOCYTES # (AUTO) 2.6 (1.0-3.2); LYMPHOCYTES % 33.8 % (18.0-39.1); MEAN CORPUSCULAR HEMOGLOBIN 30.7 pg (28-32); MEAN CORPUSCULAR HGB CONC 34.2 g/dL (31-35); MEAN CORPUSCULAR VOLUME 89.9 fL (81-99); MONOCYTES # (AUTO) 0.7 (0.2-0.8); NEUTROPHILS # (AUTO) 4.1 (2.1-6.9); NEUTROPHILS % 53.9 % (38.7-80.0); PLATELET COUNT 197 x10e3/uL (140-360); RED BLOOD COUNT 3.45 x10e6/uL (3.6-5.1); RED CELL DISTRIBUTION WIDTH 11.9 % (11.7-14.4)
[2019-04-03] MEDS: SODIUM CHLORIDE 0.9% 1000ML 1,000 ML IV SCH ×2 (05:55→10:25)
--- NOTE | 2019-04-03 07:08 | NUR ---
patient endorsed to next shift for continuity of care.
--- NOTE | 2019-04-03 07:13 | NUR ---
Urine was screened and no stones noted.
--- NOTE | 2019-04-03 07:26 | NUR ---
Rcvd patient in report this am. Patient is asleep in bed at this time. No s/s of distress noted
[2019-04-03 08:00] VITALS: BP 105/56
[2019-04-03] MEDS: HYDROCHLOROTHIAZIDE 25 MG TAB PO SCH (08:19)
[2019-04-03] MEDS: ESCITALOPRAM OXALATE 10 MG TAB PO SCH (08:19)
[2019-04-03] MEDS: OXYBUTYNIN CHLORIDE XL 5 MG TAB PO SCH (08:19)
[2019-04-03] MEDS: CEFTRIAXONE SOD 1 GM/NS 50 ML 50 ML IV SCH (08:19)
[2019-04-03] MEDS: LISINOPRIL 10 MG TAB PO SCH (08:20)
[2019-04-03 08:22] LABS: ALBUMIN/GLOBULIN RATIO 1.4 (0.8-2.0); CALCIUM 8.1 mg/dL (8.4-10.2); CREATININE, SERUM 1.28 mg/dL (0.57-1.11)
[2019-04-03] MEDS: INSULIN LISPRO 100 UNIT/1 ML 3ML VIAL SQ SCH ×3 (09:06→15:44)
[2019-04-03 09:09] VITALS: BP 105/56
--- NOTE | 2019-04-03 09:30 | NUR ---
Patient is AAOx3. Patient lung harmon clear to auscultation. Bowel sounds present x4. NO c/o pain at this time in her lower abdomen. Patient continues on IV fluids. Left AC IV in place. Continue to strain urine. No stone passed at this time. Pain has improved some.
[2019-04-03 15:30] VITALS: BP 122/68
--- NOTE | 2019-04-03 15:50 | NUR ---
Visit made by the Spiritual Care Department Pastoral Visitor, Faisal Tamayo. PV provided pastoral presence, hospitality, and supportive listening. Pastoral Visitor informed pt/family of the scope of Associate Civil Engineer Services and availability. BROOKS SY Putty And Caulking Supervisor Spiritual Care Department O: [phone] Pager: [phone] ([phone] number calling from)
[2019-04-03] MEDS: KETOROLAC TROMETHAMINE 30 MG/ML VIAL IV PRN (17:23)
--- NOTE | 2019-04-03 17:30 | NUR ---
Removed IV at this time. Pressure dressing applied.
--- NOTE | 2019-04-03 17:46 | NUR ---
Patient discharged from facility to home. Patient assisted out via staff. Reviewed all discharge paperwork, follow up appts and RX's given.
--- NOTE | 2019-04-03 19:39 | Discharge Summary ---
ADMISSION DIAGNOSES: Obstructing renal calculus, type 2 diabetes, hypertension, urinary tract infection, anxiety, depression, and obesity. DISCHARGE DIAGNOSES: Obstructing renal calculus, type 2 diabetes, hypertension, urinary tract infection, anxiety, depression, and obesity. HISTORY: The patient has a history of type 2 diabetes, hypertension, anxiety, and depression. SURGICAL HISTORY: Ovarian tumor removal and ablation. FAMILY HISTORY: The patient's mom, aunt, grandma, and dad have diabetes. The patient's dad had cancer. The patient's mom had a stroke. SOCIAL HISTORY: Occasional alcohol use. HOSPITAL COURSE: A 48-year-old female with complains of sharp abdominal pain that started yesterday morning and lasted 5 minutes before resolving spontaneously, then around 11 p.m. the pain returned, but was only a throbbing pain for about 30 minutes. At 3:30 in the morning, the sharp pain returned and she had associated shortness of breath, so she came to the ER. On admission, CT of the abdomen showed a 5 mm obstructing calculus in the proximal left ureter resulting in mild left hydroureteronephrosis, hepatomegaly, and hepatic steatosis. The patient felt as if the stone was moving, so we did a KUB, which did not visualize the stone. UA on admission showed bacteria, WBC. The patient was started on Rocephin. She was being treated with doxycycline outpatient for pneumonia, so the patient will change antibiotics to Levaquin. She was given Flomax by Urology. Her pain is controlled off IV pain medicine, so she would rather go home and follow up outpatient as she is uninsured and does not want rack up huge hospital bill. The patient understands discharge instructions and agrees to plan. Vital signs are stable. The patient is afebrile. Dictated by Bee Obrien NP MD SEBATSIÁN Boland/NGUYEN /[id number]
== END 2019-04-03 17:47 | disposition home or self-care (01) | DRG 694 ==
LOC: ER 03:49 → ERHOLD 06:40 → ACU 11:28 → MED/SURG 11:33
PROVIDERS: ADMIT Internal Medicine; ATTEND Internal Medicine
DX: N13.2 Hydronephrosis with renal and ureteral calculous obstruction (principal); E11.9 Type 2 diabetes mellitus without complications; I10 Essential (primary) hypertension; F41.9 Anxiety disorder, unspecified; F32.9 Major depressive disorder, single episode, unspecified; Z83.3 Family history of diabetes mellitus; Z82.3 Family history of stroke; Z80.9 Family history of malignant neoplasm, unspecified; N39.0 Urinary tract infection, site not specified; E66.9 Obesity, unspecified; Z68.35 Body mass index [BMI] 35.0-35.9, adult; Z79.84 Long term (current) use of oral hypoglycemic drugs
CPT/HCPCS: 36415; 74018; 74177; 80048; 80053; 80307; 81001; 81025; 82150; 82550; 82553; 82948; 83605; 83690; 84484; 85025; 87040; 87086; 93005; 96372; 96375; 99284; J0696; J1170; J1885; J2270; J2405; J7030; Q9967